=== PATIENT | male | born 1995 | race African-American/Black ===

== ENCOUNTER 2022-07-29 01:05 | Emergency (ER) | payer MEDICAID, OTHER ==
[~2022-07-29] VITALS: Ht 180.3 cm; Wt 136.1 kg
--- NOTE | 2022-07-29 01:20 | NUR ---
PRESENTED TO THE ER FOR C/O SI PLANNING TO RUN INTO [facility]. REQUESTING VOLUNTARPY PSYCH ADMISSION. PT A, OX3 WITH EPPISODES OF ANXIETY, AGITATION. AMBULATORY TO THE BATHROOM WITH STEADY GAOTS. URINE SAMPLE OBTAINED AND SENT TO THE LAB. PT IS GOWNED UP AND ALL HIS BELONGINGS WERE TAKEN AWAY IN SAFE PLACE. SI PRECAUTION IMPLEMENTED . WILL CONT TO MONITOR,
[2022-07-29 02:52] LABS: BASOPHILS % (AUTO) 0.7 % (0.0-2.0); EOSINOPHILS % (AUTO) 8.4 % (0.0-6.0); HEMATOCRIT 37 % (39-51); HEMOGLOBIN 11.7 g/dL (13.5-17.5); LYMPHOCYTES # (AUTO) 1.4 K/uL (0.8-4.8); LYMPHOCYTES % (AUTO) 21.6 % (20.0-44.0); MEAN CORPUSCULAR HGB CONC 32 g/dl (31.0-36.0); MEAN CORPUSCULAR VOLUME 82 fL (80-96); MONOCYTES # (AUTO) 0.6 K/uL (0.1-1.30); MONOCYTES % (AUTO) 9.3 % (2.0-12.0); NEUTROPHILS # (AUTO) 3.9 K/uL (1.8-8.9); PLATELET COUNT (AUTO) 334 K/uL (150-450); RED BLOOD CELL COUNT(AUTO) 4.43 MIL/uL (4.5-6.0); WHITE BLOOD COUNT (AUTO) 6.6 K/uL (4.3-11.0)
[2022-07-29 03:23] LABS: BILIRUBIN,URINE NEGATIVE (NEGATIVE); COLOR,URINE YELLOW (YELLOW); LEUKOCYTE ESTERASE ,URINE NEGATIVE (NEGATIVE); NITRITE, URINE NEGATIVE (NEGATIVE); PROTEIN,URINE NEGATIVE (NEGATIVE); UGLUCOSE NEGATIVE (NEGATIVE)
[2022-07-29 03:29] LABS: ALANINE AMINOTRANSFERASE 24 U/L (12-78); ALBUMIN 2.9 g/dL (3.4-5.0); ALCOHOL, BLOOD < 3 mg/dL (0-0); ALKALINE PHOSPHATASE 62 U/L (46-116); ASPARTATE AMINOTRANSFERASE 21 U/L (15-37); BILIRUBIN,DIRECT 0.1 mg/dL (0.0-0.2); BILIRUBIN,TOTAL 0.2 mg/dL (0.2-1.0); CALCIUM, SERUM 8.3 mg/dL (8.5-10.1); CARBON DIOXIDE 23 mmol/L (21-32); CHLORIDE 101 mmol/L (98-107); GLUCOSE 132 mg/dL (74-106); POTASSIUM 3.5 mmol/L (3.5-5.1); SODIUM SERUM 134 mmol/L (136-145); TOTAL PROTEIN, SERUM 8.3 g/dL (6.4-8.2); UREA NITROGEN, BLOOD 15 mg/dL (7-18)
[2022-07-29 03:43] LABS: ACETAMINOPHEN 0 ug/ml (10-30)
[2022-07-29] MEDS ORDERED: IOHEXOL-300 100 ML VIAL IV ONE (05:10)
--- NOTE | 2022-07-29 05:11 | NUR ---
RAC 18G PIV STARTED WITH GOOD BLOOD RETURN.
--- NOTE | 2022-07-29 07:11 | NUR ---
FAXED CLINICALS TO [facility]
--- NOTE | 2022-07-29 11:11 | NUR ---
PT ACCEPTED TO [facility] UNDER DR. LAI CALL [phone] FOR REPORT.
--- NOTE | 2022-07-29 11:15 | NUR ---
[facility] CALLED FOR TRANSPORT ETA 45 MINS PER JOSELO.
--- NOTE | 2022-07-29 13:02 | NUR ---
Patient discharged to [facility] via [facility] in stable condition accompanied by 3 [employer] musician. Written and verbal after care instructions given. Patient verbalizes understanding of instruction. All belongings returned to pt.
[2022-07-29 13:03] VITALS: BP 135/78
== END 2022-07-29 13:03 ==
LOC: ER 01:08
DX: R45.851 Suicidal ideations (principal); R07.9 Chest pain, unspecified; R06.02 Shortness of breath; Z86.711 Personal history of pulmonary embolism; Z20.822 Contact with and (suspected) exposure to COVID-19; F31.9 Bipolar disorder, unspecified; F20.9 Schizophrenia, unspecified
CPT/HCPCS: 99285; 93005; 71045; 71275; 85025; 80048; 80076; 85378; 81003; 36415; 84484; 87426; 80143; 80320; 80307; Q9967; C9803; G0480